=== PATIENT | male | born 1990 | race Caucasian/White ===

== ENCOUNTER 2018-10-15 06:54 | Day surgery (SDC) | payer OTHER, MEDICARE ==
[~2018-10-15] VITALS: Ht 182.9 cm; Wt 85.0 kg
[~2018-10-15 06:54] MED LIST: RINGERS SOLUTION,LACTATED 1,000 ML IV ONE
[2018-10-15] MEDS ORDERED: MIDAZOLAM HCL 2 MG/2 ML VIAL IVP ONE (06:55)
[2018-10-15] MEDS ORDERED: RINGERS SOLUTION,LACTATED 1,000 ML IV ONE (07:15)
[2018-10-15 08:01] LABS: BASOPHILS % (AUTO) 0.7 % (0.0-2.0); EOSINOPHILS % (AUTO) 2.6 % (1.0-6.0); HEMATOCRIT 41.2 % (41-53); HEMOGLOBIN 14.4 g/dL (13.5-17.5); LYMPHOCYTES # (AUTO) 1.3 K/uL (1.0-4.8); LYMPHOCYTES % (AUTO) 28.6 % (22.0-44.0); MEAN CORPUSCULAR VOLUME 88 fL (80-100); MONOCYTES # (AUTO) 0.2 K/uL (0.1-1.0); MONOCYTES % (AUTO) 5.3 % (2.0-9.0); NEUTROPHILS # (AUTO) 2.8 K/uL (1.8-7.7); NEUTROPHILS % (AUTO) 62.8 % (40.0-70.0); PLATELET COUNT (AUTO) 191 K/uL (150-450); RED BLOOD CELL COUNT(AUTO) 4.66 MIL/uL (4.50-5.90); RED CELL DISTRIBUTION WIDTH 12.8 % (11.5-14.5)
[2018-10-15 08:08] LABS: ANION GAP 8 mmol/L (8-16); CALCIUM, TOTAL 9.4 mg/dL (8.8-10.5); CARBON DIOXIDE 29 mmol/L (22-29); CHLORIDE 101 mmol/L (98-107); CREATININE 0.66 mg/dL (0.60-1.30); GLOMERULAR FILTR. RATE CALC > 60 mL/min (>60); GLUCOSE,RANDOM 94 mg/dL (70-110); POTASSIUM 3.7 mmol/L (3.5-5.1); SODIUM SERUM 138 mmol/L (136-145); UREA NITROGEN, BLOOD 7 mg/dL (7-18)
[2018-10-15 08:09] LABS: PROTHROMBIN TIME 10.3 SEC (9.4-11.6)
[2018-10-15 08:13] LABS: ALANINE AMINOTRANSFERASE 26 U/L (12-78); ALBUMIN 4.4 g/dL (3.4-5.0); ALKALINE PHOSPHATASE 64 U/L (46-116); ASPARTATE AMINOTRANSFERASE 13 U/L (15-37); BILIRUBIN,TOTAL 0.4 mg/dL (0.1-1.0); TOTAL PROTEIN, SERUM 7.3 g/dL (6.4-8.2)
[2018-10-15] MEDS ORDERED: HYDR25TA PO (08:34)
[2018-10-15] MEDS ORDERED: RISP1 PO (08:34)
[2018-10-15] MEDS ORDERED: LISI-662 PO (08:34)
[2018-10-15] MEDS ORDERED: CARB200T5 PO (08:34)
[2018-10-15] MEDS ORDERED: LEVE500T53 PO (08:34)
[2018-10-15] MEDS ORDERED: ACETAMINOPHEN 1000 MG/ISO-OSM 100 ML IV ONE (10:13)
[2018-10-15] MEDS ORDERED: KETAMINE HCL 50 MG/ML 10 ML VIAL ONE (10:13)
[2018-10-15] MEDS ORDERED: LIDOCAINE/PF 2% 5 ML VIAL ONE (10:13)
[2018-10-15] MEDS ORDERED: DEXAMETHASONE SOD PHOS 4 MG/ML VIAL ONE (10:13)
[2018-10-15] MEDS ORDERED: AMPICILLIN SODIUM 1 GM/VIAL ONE (10:15)
[2018-10-15] MEDS ORDERED: FentaNYL CITRATE-PF 100 MCG/2 ML VIAL IVP PRN (11:00)
[2018-10-15] MEDS ORDERED: MEPERIDINE-PF 25 MG/ML VIAL IVP PRN (11:00)
[2018-10-15] MEDS ORDERED: HYDROmorphone 2 MG/ML SYRINGE IVP PRN (11:00)
== END 2018-10-15 12:55 | disposition home or self-care (01) ==
LOC: SURGERY 06:54
PROVIDERS: ATTEND Dentist General Practice
DX: K05.30 Chronic periodontitis, unspecified (principal); K03.6 Deposits [accretions] on teeth; I10 Essential (primary) hypertension; F84.0 Autistic disorder; E66.9 Obesity, unspecified; Z79.899 Other long term (current) drug therapy; Z79.01 Long term (current) use of anticoagulants; Z98.890 Other specified postprocedural states
CPT/HCPCS: 36415; 41899; 71045; 80053; 85025; 85610; 85730; 93005; J0131; J0290; J1100; J2250; J3490 ×2; J7120

== ENCOUNTER 2020-05-18 06:52 | Day surgery (SDC) | payer OTHER, MEDICARE ==
[~2020-05-18] VITALS: Ht 185.4 cm; Wt 86.4 kg
[~2020-05-18 06:52] MED LIST changes: +CARB200T5 PO; +HYDR-1475 PO; +LEVE500T53 PO; +LISI-894 PO; +RISP1TAB48 PO
[2020-05-18] MEDS ORDERED: DEXAMETHASONE SOD PHOS 4 MG/ML VIAL IVP ONE (06:53)
[2020-05-18] MEDS ORDERED: METOCLOPRAMIDE HCL 5 MG/ML 2 ML VIAL IVP ONE (06:53)
[2020-05-18] MEDS ORDERED: LIDOCAINE/PF 2% 5 ML VIAL IM ONE (06:53)
[2020-05-18] MEDS ORDERED: PROPOFOL 1% 20 ML VIAL IVP ONE (06:53)
[2020-05-18] MEDS ORDERED: ROCURONIUM BROMIDE 10 MG/ML 5 ML VIAL IVP ONE (06:53)
[2020-05-18] MEDS ORDERED: ONDANSETRON HCL 4 MG/2 ML VIAL IVP ONE (06:53)
[2020-05-18] MEDS ORDERED: MIDAZOLAM HCL 2 MG/2 ML VIAL IVP ONE (06:53)
[2020-05-18] MEDS ORDERED: FentaNYL CITRATE PF 100 MCG/2 ML VIAL IVP ONE (06:53)
[2020-05-18] MEDS ORDERED: RINGERS SOLUTION,LACTATED 1,000 ML IV ONE (07:06)
[2020-05-18] MEDS ORDERED: AMPICILLIN SODIUM 1 GM/VIAL ONE (07:09)
[2020-05-18] MEDS ORDERED: SODIUM CHLORIDE 0.9% 100 ML ONE (07:10)
[2020-05-18 07:32] LABS: PROTHROMBIN TIME 10.6 SEC (9.4-11.6)
[2020-05-18 07:34] LABS: COVID AG,FIA SOURCE NASOPHARYNGEAL
[2020-05-18 07:37] LABS: BASOPHILS % (AUTO) 0.7 % (0.0-2.0); HEMATOCRIT 39.1 % (41-53); HEMOGLOBIN 13.7 g/dL (13.5-17.5); LYMPHOCYTES # (AUTO) 1.4 K/uL (1.0-4.8); LYMPHOCYTES % (AUTO) 32.5 % (22.0-44.0); MEAN CORPUSCULAR HEMOGLOBIN 31.2 pg (26.0-34.0); MEAN CORPUSCULAR VOLUME 89 fL (80-100); MONOCYTES # (AUTO) 0.3 K/uL (0.1-1.0); NEUTROPHILS # (AUTO) 2.3 K/uL (1.8-7.7); NEUTROPHILS % (AUTO) 55.8 % (40.0-70.0); PLATELET COUNT (AUTO) 165 K/uL (150-450); RED BLOOD CELL COUNT(AUTO) 4.38 MIL/uL (4.50-5.90); RED CELL DISTRIBUTION WIDTH 12.9 % (11.5-14.5)
[2020-05-18 07:48] LABS: ANION GAP 9 mmol/L (8-16); CARBON DIOXIDE 28 mmol/L (22-29); CHLORIDE 100 mmol/L (98-107); CREATININE 0.62 mg/dL (0.60-1.30); GLOMERULAR FILTR. RATE CALC > 60 mL/min (>60); GLUCOSE,RANDOM 98 mg/dL (70-110); POTASSIUM 3.7 mmol/L (3.5-5.1); SODIUM SERUM 137 mmol/L (136-145); UREA NITROGEN, BLOOD 9 mg/dL (7-18)
[2020-05-18 07:54] LABS: ALANINE AMINOTRANSFERASE 34 U/L (12-78); ALBUMIN 4.2 g/dL (3.4-5.0); ALKALINE PHOSPHATASE 62 U/L (46-116); ASPARTATE AMINOTRANSFERASE 21 U/L (15-37); BILIRUBIN,TOTAL 0.6 mg/dL (0.1-1.0); TOTAL PROTEIN, SERUM 7.2 g/dL (6.4-8.2)
[2020-05-18] MEDS ORDERED: MEPERIDINE-PF 25 MG/ML VIAL IVP PRN (10:00)
[2020-05-18] MEDS ORDERED: FentaNYL CITRATE PF 100 MCG/2 ML VIAL IVP PRN (10:00)
[2020-05-18] MEDS ORDERED: HYDROmorphone 2 MG/ML VIAL IVP PRN (10:00)
[2020-05-18] MEDS ORDERED: SUGAMMADEX SODIUM 200 MG/2 ML VIAL IVP ONE (10:08)
[2020-05-18] MEDS ORDERED: OXYGEN THERAPY IH SCH (20:00)
== END 2020-05-18 11:40 | disposition home or self-care (01) ==
LOC: SURGERY 06:52
PROVIDERS: ATTEND Dentist General Practice
DX: K02.9 Dental caries, unspecified (principal); K05.30 Chronic periodontitis, unspecified; K03.6 Deposits [accretions] on teeth; G40.909 Epilepsy, unspecified, not intractable, without status epilepticus; E66.9 Obesity, unspecified; Z79.899 Other long term (current) drug therapy; F84.0 Autistic disorder
CPT/HCPCS: 36415; 41899; 71045; 80053; 85025; 85610; 85730; 87426; 93005; A9575; C9803; J0290; J0690; J1100; J2250; J2405; J2704; J2765; J3010; J3490 ×2; J7050; J7120

== ENCOUNTER 2022-12-26 06:18 | Day surgery (SDC) | payer OTHER, MEDICARE ==
[~2022-12-26] VITALS: Ht 177.8 cm; Wt 92.7 kg
[~2022-12-26 06:18] MED LIST changes: -HYDR-1475 PO; +HYDR25TA2 PO; +LEVE500T20 PO; -LEVE500T53 PO; -RINGERS SOLUTION,LACTATED 1,000 ML IV ONE
[2022-12-26] MEDS ORDERED: FentaNYL CITRATE PF 100 MCG/2 ML VIAL IVP ONE (06:19)
[2022-12-26] MEDS ORDERED: DEXAMETHASONE SOD PHOS 4 MG/ML VIAL IVP ONE (06:19)
[2022-12-26] MEDS ORDERED: SUGAMMADEX SODIUM 200 MG/2 ML VIAL IVP ONE (06:19)
[2022-12-26] MEDS ORDERED: MIDAZOLAM HCL 2 MG/2 ML VIAL IVP ONE (06:19)
[2022-12-26] MEDS ORDERED: PROPOFOL 1% 20 ML VIAL IVP ONE (06:19)
[2022-12-26] MEDS ORDERED: ONDANSETRON HCL 4 MG/2 ML VIAL IVP ONE (06:19)
[2022-12-26] MEDS ORDERED: LIDOCAINE/PF 2% 5 ML VIAL IM ONE (06:19)
[2022-12-26] MEDS ORDERED: ROCURONIUM BROMIDE 10 MG/ML 5 ML VIAL IVP ONE (06:19)
[2022-12-26] MEDS ORDERED: RINGERS SOLUTION,LACTATED 1,000 ML IV ONE ×2 (06:30→08:01)
[2022-12-26] MEDS ORDERED: LISI20TA24 PO (07:24)
[2022-12-26] MEDS ORDERED: LEVE100S7 PO (07:24)
[2022-12-26] MEDS ORDERED: AMPICILLIN SODIUM 2 GM/NS 100 ML IV ONE (07:32)
[2022-12-26 07:52] LABS: BASOPHILS % (AUTO) 1.2 % (0.0-2.0); EOSINOPHILS % (AUTO) 5.5 % (1.0-6.0); HEMATOCRIT 43.1 % (41-53); LYMPHOCYTES # (AUTO) 1.5 K/uL (1.0-4.8); LYMPHOCYTES % (AUTO) 31.6 % (22.0-44.0); MEAN CORPUSCULAR HEMOGLOBIN 31.1 pg (26.0-34.0); MEAN CORPUSCULAR HGB CONC 34.7 G/dL (31.0-37.0); MEAN CORPUSCULAR VOLUME 89 fL (80-100); MONOCYTES # (AUTO) 0.2 K/uL (0.1-1.0); MONOCYTES % (AUTO) 5.1 % (2.0-9.0); NEUTROPHILS # (AUTO) 2.6 K/uL (1.8-7.7); NEUTROPHILS % (AUTO) 56.6 % (40.0-70.0); PLATELET COUNT (AUTO) 195 K/uL (150-450); RED BLOOD CELL COUNT(AUTO) 4.82 MIL/uL (4.50-5.90); RED CELL DISTRIBUTION WIDTH 13.3 % (11.5-14.5); WHITE BLOOD COUNT (AUTO) 4.7 K/uL (4.5-11.0)
[2022-12-26 08:03] LABS: ANION GAP 9 mmol/L (8-16); CALCIUM, TOTAL 8.8 mg/dL (8.8-10.5); CARBON DIOXIDE 26 mmol/L (22-29); CHLORIDE 105 mmol/L (98-107); CREATININE 0.41 mg/dL (0.60-1.30); GLOMERULAR FILTR. RATE CALC > 60 mL/min (>60); GLUCOSE,RANDOM 90 mg/dL (70-110); POTASSIUM 3.8 mmol/L (3.5-5.1); SODIUM SERUM 140 mmol/L (136-145); UREA NITROGEN, BLOOD 6 mg/dL (7-18)
[2022-12-26 08:05] LABS: INR 1.1 (0.9-1.1); PROTHROMBIN TIME 11.1 SEC (9.4-11.6)
[2022-12-26 08:10] LABS: ALANINE AMINOTRANSFERASE 20 U/L (12-78); ALBUMIN 4.2 g/dL (3.4-5.0); ALKALINE PHOSPHATASE 63 U/L (46-116); ASPARTATE AMINOTRANSFERASE 17 U/L (15-37); BILIRUBIN,TOTAL 0.4 mg/dL (0.1-1.0)
[2022-12-26] MEDS ORDERED: FentaNYL CITRATE PF 100 MCG/2 ML VIAL IVP PRN (11:30)
[2022-12-26] MEDS ORDERED: OXYGEN THERAPY IH SCH (20:00)
== END 2022-12-26 13:15 | disposition home or self-care (01) ==
LOC: SURGERY 06:18
PROVIDERS: ATTEND Dentist General Practice
DX: K05.30 Chronic periodontitis, unspecified (principal); K02.9 Dental caries, unspecified; K59.00 Constipation, unspecified; I10 Essential (primary) hypertension; F84.0 Autistic disorder; E66.9 Obesity, unspecified; G40.909 Epilepsy, unspecified, not intractable, without status epilepticus; K03.6 Deposits [accretions] on teeth; Z79.01 Long term (current) use of anticoagulants; Z79.899 Other long term (current) drug therapy
CPT/HCPCS: 41899; 71045; 80053; 85025; 85610; 85730; 36415; 93005; J0290; J2704; J1100; J3010; J3490 ×2; J2250; J2405; Q9967; J7120